=== PATIENT | male | born 1965 | race African-American/Black ===

== ENCOUNTER 2019-09-28 13:52 | Emergency (ER) | payer MEDICAID, OTHER ==
[~2019-09-28] VITALS: Ht 172.7 cm; Wt 86.2 kg
[2019-09-28 17:32] VITALS: BP 189/124
[2019-09-28] MEDS ORDERED: cloNIDine HCL 0.1 MG TAB ONE (17:39)
[2019-09-28] MEDS ORDERED: cloNIDine HCL 0.1 MG TAB PO ONE (17:45)
[2019-09-28] MEDS ORDERED: HYDROcodone-ACET 10/325MG TAB PO ONE (21:00)
[2019-09-28] MEDS ORDERED: BACLOFEN 10 MG TAB PO ONE (21:00)
[2019-09-28] MEDS ORDERED: HYDROcodone-ACET 10/325MG TAB ONE (21:25)
== END 2019-09-28 21:43 | disposition home or self-care (01) ==
LOC: ER 13:52
DX: M54.2 Cervicalgia (principal); M62.838 Other muscle spasm; I10 Essential (primary) hypertension; M25.522 Pain in left elbow; W00.0XXA Fall on same level due to ice and snow, initial encounter; Y93.01 Activity, walking, marching and hiking; Y92.89 Other specified places as the place of occurrence of the external cause; Y99.8 Other external cause status
CPT/HCPCS: 72100; 73080

== ENCOUNTER 2020-04-27 11:52 | Emergency (ER) | payer OTHER ==
[~2020-04-27] VITALS: Ht 175.3 cm; Wt 88.5 kg
[2020-04-27] MEDS ORDERED: METHOCARBAMOL 500 MG TAB PO ONE (16:30)
[2020-04-27] MEDS ORDERED: IBUPROFEN 800 MG TAB PO ONE (16:30)
[2020-04-27 17:06] VITALS: BP 169/99
== END 2020-04-27 17:09 | disposition home or self-care (01) ==
LOC: EDUNIT# 11:52 → ER 11:52 → EDBD 11:52 → ER 17:09
DX: M54.16 Radiculopathy, lumbar region (principal); M54.2 Cervicalgia; F17.210 Nicotine dependence, cigarettes, uncomplicated
CPT/HCPCS: 72125; 72128

== ENCOUNTER 2020-11-18 13:09 | Emergency (ER) | payer OTHER ==
[~2020-11-18] VITALS: Ht 172.7 cm; Wt 88.5 kg
[2020-11-18] MEDS ORDERED: IBUPROFEN 800 MG TAB PO ONE (16:45)
[2020-11-18] MEDS ORDERED: METHOCARBAMOL 500 MG TAB PO ONE (16:45)
[2020-11-18 17:36] VITALS: BP 168/107
== END 2020-11-18 17:47 | disposition home or self-care (01) ==
LOC: ER 13:09
DX: M54.16 Radiculopathy, lumbar region (principal); M79.641 Pain in right hand; F17.210 Nicotine dependence, cigarettes, uncomplicated; I10 Essential (primary) hypertension
CPT/HCPCS: 72100; 73130